=== PATIENT | male | born 1995 | race Caucasian/White ===

== ENCOUNTER 2019-09-24 09:59 | Outpatient (CLI) | payer BC, SELFPAY ==
--- NOTE | 2019-09-24 | XR_ITS ---
WS: [id number] XR knee LT 3V* [id number] REASON FOR EXAM: LEFT LATERAL KNEE PAIN FINDINGS: Along the medial spine of the tibia there is a calcified densities suggesting but not concl usive of an avulsion fracture. Along the lateral collateral ligaments calcified suggesting lateral ligamentous calcification Soft tissue swelling over the anterior compartment the knee. The patella tibial space is normal The patella femoral articulation normal. XR/XR knee LT 3V* [id number] IMPRESSION: Calcification along the lateral collateral ligament A calcified density is seen adjacent to the medial spine of the tibia.
== END 2019-09-24 10:00 | disposition home or self-care (01) ==
LOC: RADOUTREAD 09-27 10:34
PROVIDERS: Visit Provider Nurse Practitioner Family
DX: Z01.89 Encounter for other specified special examinations (principal)

== ENCOUNTER → 2020-07-05 14:11 | Outpatient (BNVA) | payer BC, SELFPAY | PROVIDERS: Visit Provider Orthopaedic Surgery | DX: M25.561 Pain in right knee (principal); M25.562 Pain in left knee | CPT/HCPCS: 73560; 73565 ==